=== PATIENT | male | born 1995 | race Caucasian/White ===

== ENCOUNTER 2020-06-10 01:18 | Emergency (ER) | payer SELFPAY ==
[~2020-06-10] VITALS: Ht 177.8 cm; Wt 70.0 kg
[2020-06-10] MEDS ORDERED: LORazepam 1MG TABLET ONE (01:37)
[2020-06-10] MEDS ORDERED: LORazepam 1MG TABLET PO ONE (02:00)
[2020-06-10] MEDS ORDERED: HALOPERIDOL 5 MG/ML IM PRN (03:00)
[2020-06-10] MEDS ORDERED: HALOPERIDOL 5 MG/ML ONE (03:23)
--- NOTE | 2020-06-10 03:30 | NUR ---
Patient dosing off in bed. Patient states feeling better, ERP aware, will not administer haldol.
[2020-06-10 04:06] VITALS: BP 92/44
== END 2020-06-10 04:17 | disposition home or self-care (01) ==
LOC: ED 04:06
DX: F12.10 Cannabis abuse, uncomplicated (principal); F41.1 Generalized anxiety disorder; R06.02 Shortness of breath; R42 Dizziness and giddiness; F41.0 Panic disorder [episodic paroxysmal anxiety]
CPT/HCPCS: 99283